=== PATIENT | male | born 1975 | race Hispanic/Latino ===

== ENCOUNTER 2019-05-21 16:26 | Emergency (ER) | payer SELFPAY ==
[2019-05-21] MEDS ORDERED: Adacel (T-DAP) 0.5 ML SYRINGE ONE (16:47)
[2019-05-21] MEDS ORDERED: Lidocaine 1% (PF) 30 ML VIAL ONE (16:47)
[2019-05-21] MEDS ORDERED: Bacitracin 1 PK ONE (18:20)
== END 2019-05-21 18:39 | disposition home or self-care (01) ==
LOC: ERS 16:26
DX: S61.011A Laceration without foreign body of right thumb without damage to nail, initial encounter (principal); Z23 Encounter for immunization; W26.8XXA Contact with other sharp object(s), not elsewhere classified, initial encounter
CPT/HCPCS: 12001; 90471; 90715; J2001

== ENCOUNTER 2025-02-04 18:39 | Emergency (ER) | payer BC, SELFPAY ==
[~2025-02-04 18:39] MED LIST: Iopamidol-370 76% 500 ML MDV (1 ML CHARGE) ONE
[2025-02-04 19:07] LABS: Bacteria/HPF None Seen HPF (None Seen); CAUTI Indications for Culture Acute Hematuria; Glucose, Urine (Dipstick) Normal (Negative); Leukocyte Negative Leu/uL (Negative); Protein, Urine (Dipstick) Negative (Neg-Trace); RBC/HPF 0-3 HPF (0-3); Specific Gravity, Urine 1.006 (1.002-1.036); WBC/HPF 0-3 HPF (0-3)
[2025-02-04 19:09] LABS: Urine Culture Reflex No No
[2025-02-04 19:52] LABS: ALT (SGPT) 17 U/L (Less than 45); AST (SGOT) 16 U/L (11-34); Albumin 4.2 g/dL (3.1-4.5); Alkaline Phosphatase 47 U/L (40-110); Anion Gap 14 mmol/L (10-20); BUN (Urea Nitrogen) 16 mg/dL (8.9-20.6); Bilirubin, Total 0.4 mg/dL (0.3-1.2); Calc. Creatinine Clearance 0 mL/min (70-130); Calcium 9.0 mg/dL (7.8-10.44); Carbon Dioxide 23 mmol/L (22-29); Chloride 107 mmol/L (98-107); Globulin 2.8 g/dL (2.4-3.5); Glucose 112 mg/dL (70-105); Lipase 15 U/L (8-78); Potassium 3.8 mmol/L (3.5-5.1); Sodium 140 mmol/L (136-145)
[2025-02-04] MEDS ORDERED: diphenhydrAMINE 50 MG/ML VIAL ONE (19:53)
[2025-02-04] MEDS ORDERED: Lidocaine Viscous Sol 2% 15 ml UD Cup ONE (19:53)
[2025-02-04] MEDS ORDERED: Metoclopramide HCl 10 MG (2 mL) VIAL ONE (19:53)
[2025-02-04] MEDS ORDERED: Famotidine/PF 20 mg/2ml Vial ONE (19:54)
[2025-02-04] MEDS ORDERED: Mag-Al 1200 mg/1200 mg/30 ML UDCUP ONE (19:58)
[2025-02-04 20:03] LABS: #Basophils Less than 0.03 10x3/uL (0.0-0.2); #Eosinophils 0.70 10x3/uL (0.0-0.7); #Monocytes 0.24 10x3/uL (0.11-0.59); #Neutrophils 5.56 10x3/uL (1.40-6.50); %Basophils 0.0 % (0.0-1.0); %Eosinophils 10.2 % (0.0-10.0); %Lymphocytes 4.7 % (21.0-51.0); %Monocytes 3.5 % (0.0-10.0); %Neutrophils 81.2 % (42.0-75.0); Hematocrit 37.8 % (42.0-52.0); Hemoglobin 12.1 g/dL (14.0-18.0); Mean Corpuscular Hemoglobin 26.6 pg (27.0-31.0); Mean Corpuscular Volume 83.1 fL (78.0-98.0); Platelet Count 173 10x3/uL (130-400); Red Blood Cell (RBC) Count 4.55 mill/uL (4.70-6.10); White Blood Cell (WBC) Count 6.85 10x3/uL (4.8-10.8)
== END 2025-02-04 20:49 | disposition home or self-care (01) ==
LOC: ERS 18:39
DX: K29.70 Gastritis, unspecified, without bleeding (principal); K59.00 Constipation, unspecified; G44.209 Tension-type headache, unspecified, not intractable
CPT/HCPCS: 74177; 80053; 81001; 83690; 85025; 96374; 96375; J1200; J1308; J2765; Q9967